=== PATIENT | male | born 1950 | race Caucasian/White ===

== ENCOUNTER 2017-02-19 08:37 | Emergency (ER) | payer MEDICARE, OTHER ==
[~2017-02-19] VITALS: Ht 170.2 cm; Wt 104.5 kg
[2017-02-19 08:41] VITALS: Ht 170.2 cm; Wt 104.5 kg
[2017-02-19] MEDS ORDERED: ONDANSETRON (ODT) 4 MG TAB ODT STA (09:45)
[2017-02-19] MEDS ORDERED: HYDROCODONE/APAP (10/325) TAB PO ONE (10:00)
--- NOTE | 2017-02-19 10:07 | RADRPT ---
PROCEDURE: Chest x-ray CLINICAL INDICATION: Fall with rib pain TECHNIQUE: Chest single view COMPARISON: None FINDINGS: The heart is normal in size. The pulmonary vessels are normal in caliber. The lungs are clear. Th e costophrenic angles are sharp. The visualized bony thorax is unremarkable. No obvious rib fractur es are seen. IMPRESSION: No acute cardiopulmonary disease. No evidence of pneumothorax RPTAT: HH .Ernesto Funes MD, MD Date Time Electronically viewed and signed by .Ernesto Funse MD, on 02/19/2017 10:07 .W/
[2017-02-19] MEDS ORDERED: IBUP-1542 PO (10:09)
[2017-02-19] MEDS ORDERED: HYDR-902 PO (10:09)
[2017-02-19 10:29] VITALS: BP 115/78; PULSE 70; RESP 16
--- NOTE | 2017-02-19 12:57 | ERD ---
ER Documentation Chief Complaint Chief Complaint Complains of chest and rib pain x 1 week after a fall HPI Patient is a 66-year-old male with no medical problems who presents with chest pain after a fall. He said that he fell down from 7 feet 1 week ago. He fell onto his left side. He has had left-sided rib pain since then with laying on that side or with movement. He did not hit his head and he did not lose consciousness. He tried ibuprofen for pain. He does not currently have a primary doctor. Upon review of old medical records this is the patient's first visit to the emergency department. ROS All systems reviewed and are negative except as per history of present illness. Medications Home Meds Active Scripts Hydrocodone/Acetaminophen ([place] 10-325 Tablet) 1 Each Tablet, 1 TAB PO Q6H Y for PAIN, #7 TAB Prov:LIANET CUEVA MD 02/19/17 Ibuprofen* (Motrin*) 600 Mg Tab, 600 MG PO Q6H Y for PAIN AND OR ELEVATED TEMP, #30 TAB Prov:LIANET CUEVA MD 02/19/17 Allergies Allergies: Coded Allergies: No Known Allergy (Unverified , 02/19/17) PMhx/Soc Medical and Surgical Hx: pt denies Medical Hx, pt denies Surgical Hx Hx Alcohol Use: No Hx Substance Use: No Hx Tobacco Use: No Smoking Status: Never smoker FmHx Family History: No diabetes Physical Exam Vitals Vital Signs Date Time Temp Pulse Resp B/P Pulse Ox O2 Delivery O2 Flow Rate FiO2 02/19/17 10:29 70 16 115/78 98 Room Air 02/19/17 08:41 98.7 77 20 172/89 96 Physical Exam Const: No acute distress Head: Atraumatic Eyes: Normal Conjunctiva ENT: Normal External Ears, Nose and Mouth. Neck: Full range of motion..~ No meningismus. Resp: Clear to auscultation bilaterally Cardio: Regular rate and rhythm, no murmurs, chest wall pain with palpation of the left chest wall Abd: Soft, non tender, non distended. Normal bowel sounds Skin: No petechiae or rashes Back: No midline or flank tenderness Ext: No cyanosis, or edema Neur: Awake and alert Psych: Normal Mood and Affect Results 24 hrs Current Medications Medications (Trade) Dose Ordered Sig/Toan Route PRN Reason Start Time Stop Time Status Last Admin Dose Admin Acetaminophen/ Hydrocodone Bitart ([place] (10)) 1 tab ONCE ONCE PO 02/19/17 10:00 02/19/17 10:01 DC 02/19/17 10:11 Ondansetron HCl (Zofran Odt) 4 mg ONCE STAT ODT 02/19/17 09:45 02/19/17 09:46 DC 02/19/17 10:11 Procedures/MDM EKG read by me: Rate/Rhythm: Regular rate and rhythm at a normal rate Intervals: Normal Impression: No evidence of ischemia or arrhythmia Chest X-ray 1V Interpreted by me: Soft Tissue: No acute abnormalities Bones: No acute abnormalities Mediastinum/Cardiac Silhouette/Lungs: No acute abnormalities Patient is a 58-year-old male with no medical problems who presents with left chest pain after a fall. EKG shows no signs of ischemia and chest x-ray shows no pneumonia, pneumothorax, or rib fractures. I believe the patient likely has rib contusion. The patient will be given a prescription for ibuprofen and [place]. The patient can return for any worsening symptoms. I believe outpatient management is appropriate at this time. Departure Diagnosis: Primary Impression: Rib contusion Encounter type: initial encounter Laterality: left Qualified Code: S20.212A - Contusion of rib on left side, initial encounter Additional Impressions: Chest pain Chest pain type: unspecified Qualified Code: R07.9 - Chest pain, unspecified type Fall Encounter type: initial encounter Qualified Code: W19.XXXA - Fall, initial encounter Condition: Fair Patient Instructions: Chest Pain, Uncertain Cause, Rib Contusion [facility] Usted se luz hecho un examen mdico de control que le indica que no est en kellie condicin que requiera tratamiento urgente en el Departamento de Emergencia. Un estudio ms profundo y el tratamiento de kimbrough condicin pueden esperar sin ningn riesgo hasta que usted sea atendida/o en el consultorio de kimbrough mdico o kellie cl cristiano. Es responsabilidad suya arreglar kellie ja para el seguimiento del gail. MANEJO DE CONDICIONES NO URGENTES EN EL FUTURO 1) Si usted tiene un mdico de atencin primaria: Usted debera llamar a kimbrough mdico de atencin primaria antes de venir al departamento de emergencia. Despus de las horas de consultorio, kimbrough doctor o kimbrough asociado/a est disponible por telfono. El mdico o enfermero de lorna en el servicio telefnico puede asesorarle por keisha medio para atender el problema, o gail contrario se puede programar kellie ja. 2) Si usted no tiene un mdico de atencin primaria: Llame al mdico o clnica de referencia que aparece abajo dante las horas de consultorio para hacer kelile ja para que le vean. CLINICAS: [place] [id number] [phone] [facility] [phone] [facility] [phone] [place] [address] [phone] [place] [address] [phone] [place] [id number] [phone] Additional Instructions: Llame al doctor MAANA y xavier kellie JA PARA DENTRO DE 1-2 RINALDI.Dgale a la secretaria que nosotros le instruimos hacer esta ja.Avise o llame si kimbrough condicin se empeora antes de la ja. Regresa aqui si peor o no mejor. LIANET CUEVA MD Feb 19, 2017 12:57
== END 2017-02-19 10:08 | disposition home or self-care (01) ==
LOC: E/R 08:37
DX: S20.212A Contusion of left front wall of thorax, initial encounter (principal); W17.89XA Other fall from one level to another, initial encounter; Y92.9 Unspecified place or not applicable
CPT/HCPCS: 71010; 93005